=== PATIENT | female | born 1980 | race Asian ===

== ENCOUNTER 2017-07-01 11:56 | Inpatient (IN) | payer BC ==
[2017-07-01] VITALS (14 sets, daily range): BP systolic 124–151; BP diastolic 59–83
[~2017-07-01] VITALS: Ht 154.9 cm; Wt 73.6 kg
[2017-07-01] MEDS ORDERED: LABETALOL HCL200 MG PO (12:37)
[2017-07-01] MEDS ORDERED: PRENATAL TABLE1 EACH PO (12:38)
[2017-07-01] MEDS ORDERED: CHILD ASPIRIN81 M1 PO (12:38)
[2017-07-01] MEDS ORDERED: COLACE100 MG PO (12:38)
[2017-07-01 14:06] LABS: POINT-OF-CARE METER ID UU13113801; POINT-OF-CARE USER ID RADDNY
[2017-07-01 14:10] LABS: EOSINOPHIL (%) 2.5 % (0-5); EOSINOPHIL COUNT 0.3 K/uL (0-0.3); HEMATOCRIT 33.3 % (36.0-46.0); IMMATURE GRANULOCYTE (%) 0.9 % (0.0-0.7); IMMATURE GRANULOCYTE COUNT 0.1 K/uL; LYMPHOCYTE COUNT 1.6 K/uL (1.0-2.8); MCH 28.9 PG (29.0-34.0); MCHC 33.6 G/DL (30.0-36.0); MEAN PLAT.VOLUME 10.9 uM^3 (9.5-12.4); MONOCYTE (%) 8.8 % (3-12); MONOCYTE COUNT 0.9 K/uL (0-0.8); NEUTROPHIL (%) 71.2 % (45-76); PLATELET COUNT 215 K/uL (156-360); RBC DIS.WIDTH-CV 14.5 % (11.8-14.6); RBC DIS.WIDTH-SD 44.1 % (39-53); RED BLOOD COUNT 3.87 M/uL (3.80-5.20); WHITE BLOOD COUNT 9.8 K/uL (4.1-10.2)
[2017-07-01 14:40] LABS: ALKALINE PHOSPHATASE 113 IU/L (3-129); ANION GAP 12 MEQ/L (2-14); CHLORIDE 108 MEQ/L (99-109); GFR ESTIMATE (CALCULATED) > 59 mL/min/; GLUCOSE 81 mg/dL (70-99); POTASSIUM 3.2 MEQ/L (3.7-5.4); SAMPLE HEMOLYSIS CHECK 0; SAMPLE ICTERIC CHECK 0; SAMPLE LIPEMIA CHECK 0; SODIUM 139 MEQ/L (136-147); TOTAL BILIRUBIN 0.3 MG/DL (0.0-1.0); UREA NITROGEN (BUN) 8 mg/dL (9-23)
[2017-07-01 14:58] LABS: UR CREATININE CONCENTRATION 29.5 MG/DL
[2017-07-01 18:10] LABS: POINT-OF-CARE METER ID UU13113801; POINT-OF-CARE USER ID RADDNY
[2017-07-01 22:13] LABS: POINT-OF-CARE METER ID UU13113801
[2017-07-02] VITALS (24 sets, daily range): BP systolic 122–174; BP diastolic 60–85
[2017-07-02 02:04] LABS: POINT-OF-CARE METER ID UU13113801
[2017-07-02 06:22] LABS: POINT-OF-CARE METER ID UU13113801
[2017-07-02 08:09] LABS: POINT-OF-CARE METER ID UU13113801
[2017-07-02 14:12] LABS: POINT-OF-CARE METER ID UU13113801
[2017-07-02 17:15] LABS: POINT-OF-CARE METER ID UU13113801
[2017-07-02] MEDS ORDERED: ENDOCET 5-3251 EACH PO (19:52)
[2017-07-02] MEDS ORDERED: IBUPROFEN800 MG PO (19:52)
[2017-07-03] VITALS (9 sets, daily range): BP systolic 119–162; BP diastolic 58–74
[2017-07-03 07:45] LABS: EOSINOPHIL (%) 2.2 % (0-5); EOSINOPHIL COUNT 0.3 K/uL (0-0.3); HEMATOCRIT 30.6 % (36.0-46.0); IMMATURE GRANULOCYTE (%) 0.4 % (0.0-0.7); IMMATURE GRANULOCYTE COUNT 0.1 K/uL; INSTRUMENT ABS NEUTROPHIL CT 10.3 K/uL; LYMPHOCYTE COUNT 1.7 K/uL (1.0-2.8); MCHC 33.7 G/DL (30.0-36.0); MCV 86.2 FL (83-99); MEAN PLAT.VOLUME 11.1 uM^3 (9.5-12.4); MONOCYTE (%) 7.7 % (3-12); NEUTROPHIL COUNT 10.3 K/uL (1.8-6.4); PLATELET COUNT 192 K/uL (156-360); RBC DIS.WIDTH-CV 14.4 % (11.8-14.6); RBC DIS.WIDTH-SD 44.9 % (39-53); RED BLOOD COUNT 3.55 M/uL (3.80-5.20); WHITE BLOOD COUNT 13.4 K/uL (4.1-10.2)
[2017-07-04] VITALS (8 sets, daily range): BP systolic 132–174; BP diastolic 61–84
[2017-07-05] VITALS: BP 152/78
[2017-07-05 05:03] VITALS: BP 162/77
[2017-07-05 06:30] VITALS: BP 154/78
[2017-07-05 08:02] VITALS: BP 157/76
[2017-07-05 12:00] VITALS: BP 106/65
[2017-07-05] MEDS ORDERED: LABETALOL HCL200 MG PO (14:06)
[2017-07-05] MEDS ORDERED: BREAST PUMP MC (14:32)
== END 2017-07-05 15:30 | disposition home or self-care (01) | DRG 766 ==
LOC: LDRP-OP 11:56 → 2WEST 11:58 → LDRP-OP 08-21 12:35
PROVIDERS: Midwife; Obstetrics & Gynecology; Obstetrics & Gynecology Gynecology
DX: O11.4 Pre-existing hypertension with pre-eclampsia, complicating childbirth (principal); O24.420 Gestational diabetes mellitus in childbirth, diet controlled; O99.62 Diseases of the digestive system complicating childbirth; K21.9 Gastro-esophageal reflux disease without esophagitis; O61.9 Failed induction of labor, unspecified; O69.81X0 Labor and delivery complicated by cord around neck, without compression, not applicable or unspecified; Z3A.37 37 weeks gestation of pregnancy; Z37.0 Single live birth; Z87.442 Personal history of urinary calculi
CPT/HCPCS: 80053; 82570; 82948; 84156; 85025; 86850; 86900; 86901; C1726; G0378; J0131; J0595; J0690; J1885; J2175; J2274; J2405; J2590; J7120